=== PATIENT | female | born 1985 | race Caucasian/White ===

== ENCOUNTER 2020-12-14 11:00 | Outpatient (CLI) | payer BC | END 2020-12-14 11:01 | disposition home or self-care (01) | LOC: CSHMAMMO 11:00 | PROVIDERS: ATTEND Obstetrics & Gynecology | DX: Z12.31 Encounter for screening mammogram for malignant neoplasm of breast (principal) | CPT/HCPCS: 77063; 77067 ==

== ENCOUNTER 2021-09-26 08:51 | Outpatient (CLI) | payer BC ==
[2021-09-26] MEDS ORDERED: Iopamidol 300 61% 100 ML VIAL FS ONE (13:25)
== END 2021-09-26 08:52 | disposition home or self-care (01) ==
LOC: CSHCT 08:51
PROVIDERS: ATTEND Physician Assistant Medical
DX: K52.9 Noninfective gastroenteritis and colitis, unspecified (principal); R63.4 Abnormal weight loss; R79.89 Other specified abnormal findings of blood chemistry; K76.0 Fatty (change of) liver, not elsewhere classified; K76.9 Liver disease, unspecified; N83.202 Unspecified ovarian cyst, left side
CPT/HCPCS: 74177; Q9967